=== PATIENT | female | born 1975 | race Caucasian/White ===

== ENCOUNTER → 2021-06-29 14:07 | Outpatient (CLI) | payer OTHER, SELFPAY ==
--- NOTE | 2021-06-29 14:15 | DI.MRI.S_ITS ---
PROCEDURE: MR HIP RT WO CON INDICATIONS: RIGHT HIP PAIN TECHNIQUE: Noncontrast coronal T1 spin echo and STIR through the bony pelvis. Coronal and axial T2 fast spin echo with fat saturation, sagittal T1 spin echo, and oblique axial T2 fast spin echo with fat saturation through the hip. COMPARISON: None. FINDINGS: Image quality: Excellent. Bones and joints: Bone marrow of the pelvic ring and proximal femurs show normal signal throughout. No intraosseous lesions or fractures. No avascular necrosis of the femoral heads. The visualized lower lumbar spine appears normally aligned. Tendons and ligaments: The gluteus medius and minimus tendons appear intact, without associated muscle atrophy. Mild T2 signal elevation adjacent to the femoral insertion sites of the right gluteus medius and minimus tendons. The nearby proximal iliotibial band also appears intact. The iliopsoas tendon appears intact, without adjacent bursal fluid collections or evidence for impingement syndrome. The origin of the hamstring tendon is intact at the ischial tuberosity, as well as the associated sacrotuberous ligament. The straight and reflected heads of the rectus femoris muscle origin appear intact, as well as the conjoint tendon. The ligamentum teres appears intact where visualized. Labrum and cartilage: The acetabular labrum appears intact in the absence of intra-articular contrast. Cartilage surface of the femoral head appears of normal thickness. The alpha angle of the femur is within normal limits at less than 55 degrees. Soft tissues: Visualized muscles demonstrate normal bulk and internal signal. Quadratus femoris muscle demonstrates no internal edema to suggest ischiofemoral impingement. The proximal sciatic neurovascular bundle appears normal adjacent to the hamstring tendons. No free pelvic fluid. Bladder wall thickness is normal. Bowel loops are grossly unremarkable. There are multiple uterine masses, largest of which is within the anterior uterus measuring roughly 80 mm. IMPRESSION: 1. Mild insertional tendinitis of the right gluteus medius and minimus tendons. 2. Multiple uterine masses, likely uterine fibroids. Further assessment with pelvic ultrasound is recommended. Dictated by: Kate Moreland M.D. on 06/29/2021 at 14:54 Approved by: Kate Moreland M.D. on 06/29/2021 at 15:00
== END ==
PROVIDERS: PCP Family Medicine; Referring Provider Family Medicine; Visit Provider Family Medicine
DX: M25.551 Pain in right hip (principal); M76.01 Gluteal tendinitis, right hip; N85.9 Noninflammatory disorder of uterus, unspecified
CPT/HCPCS: 73721

== ENCOUNTER → 2021-08-10 16:44 | Outpatient (CLI) | payer OTHER, SELFPAY ==
--- NOTE | 2021-08-10 16:46 | DI.MG.S_ITS ---
BILATERAL DIGITAL SCREENING MAMMOGRAM 3D/2D WITH CAD: 08/10/2021 Comparison is made to exams dated: 06/15/2019 mammogram, 09/17/2017 mammogram, and 02/16/2016 mammogram - outside. The tissue of both breasts is extremely dense, which lowers the sensitivity of mammography. Current study was also evaluated with a Computer Aided Detection (CAD) system. No significant masses, calcifications, or other findings are seen in either breast. There has been no significant interval change. IMPRESSION: NEGATIVE There is no mammographic evidence of malignancy. A 1 year screening mammogram is recommended. This exam was interpreted at Station ID: [id number]. NOTE: For mammograms, a report in lay terms will be sent to the patient. Approximately 15% of breast malignancies will not be visualized mammographically. In the management of a palpable breast mass, a negative mammogram must not discourage biopsy of a clinically suspicious lesion. Electronically Signed By: Pascual jaffe/[email or web address]:08/10/2021 17:16:40 letter sent: Normal Exam ACR BI-RADS Category 1: Negative [id number]
== END ==
PROVIDERS: PCP Family Medicine; Referring Provider Family Medicine; Visit Provider Family Medicine
DX: Z12.31 Encounter for screening mammogram for malignant neoplasm of breast (principal)
CPT/HCPCS: 77063; 77067

== ENCOUNTER → 2022-02-19 10:23 | Outpatient (CLI) | payer OTHER, SELFPAY ==
[2022-02-19 13:33] LABS: COVID19 -Nasal RAPID Negative (Negative)
== END ==
PROVIDERS: PCP Family Medicine; Visit Provider Obstetrics & Gynecology
DX: Z01.812 Encounter for preprocedural laboratory examination (principal); Z20.822 Contact with and (suspected) exposure to COVID-19
CPT/HCPCS: 87635

== ENCOUNTER 2022-02-20 12:17 | Day surgery (SDC) | payer OTHER, SELFPAY ==
[2022-02-20] VITALS (9 sets, daily range): BP systolic 102–125; BP diastolic 48–78; PULSE 56–83; RESP 14–18; TEMP 36–36.9; O2SAT 97–100; BMI 28.1
--- NOTE | 2022-02-20 | PATH_ITS ---
[facility] Accession Number: [id number] . 01 Material submitted: . uterus - UTERUS / BILATERAL FALLOPIAN TUBES . 02 Diagnosis: Uterus and Bilateral Fallopian Tubes, Laparoscopic Supracervical Hysterectomy with Bilateral Salpingectomies (Fragmented Weight 413 grams): Late secretory / interval phase endometrium; negative for glandular hyperplasia, cytologic atypia, or malignancy. Myometrium with multiple intramural leiomyomas (9-85 mm); negative for atypia or malignancy. Uterine serosa with no significant histomorphologic abnormality. First described fallopian tube, complete cross sections, with benign paratubal cysts (7-15 mm); negative for epithelial atypia or malignancy. Second described fallopian tube with benign paratubal cysts (4-17 mm), complete cross sections; negative for atypia or malignancy. Two intact Essure coils identified at gross examination [facility] 02/23/2022 1314 Local . 02 Electronically signed: . Magdalena Vides MD, Pathologist NPI- [id number] . 01 Gross description: . Received in formalin and labeled with the patient's name and designated uterus and bilat tubes is a markedly disrupted and fragmented uterus including bilateral undesignated fallopian tubes. The uterus fragments aggregate to 413 grams, 23.0 x 18.0 x 5.0 cm. Portions of identifiable serosa are mcleod and smooth with no obvious adhesions identified. The portions of identifiable endometrium are pink-red and slightly granular, up to 0.3 cm thick. The myometrium is mcleod and trabeculated; myometrial thickness cannot be established. There are multiple disrupted, fragmented and disrupted mcleod-white rubbery nodules, ranging in size from 0.9 - 8.5 cm. Two of the fragments contain 1.5 - 2.1 cm long tightly coiled intact Essure coils embedded in a fibrotic lumen. The distance into the cornu cannot be established due to fragmentation. No gross evidence of definite perforation is identified. The cut surface is mcleod-white, whorled and nodular with no gross hemorrhage, calcifications or necrosis identified. The first fallopian tube is 7.0 cm long x 0.5 cm in diameter with a purple-mcleod hyperemic outer surface containing three, 0.7 - 1.5 cm semi-translucent smooth-walled paratubal cyst filled with clear watery fluid, and attached open fimbria. The second fallopian tube is disrupted and approximates to 1.5 cm long x 0.5 cm in diameter, with a purple-mcleod hyperemic outer surface with multiple 0.4 - 1.7 cm semi-translucent smooth-walled paratubal cysts filled with clear watery fluid, and attached open fimbria. No additional lesions are identified. Gun Synchronizer sections are submitted as follows: . A1-A2: Gun Synchronizer endomyometrium. A3-A4: Gun Synchronizer nodules. A5: Gun Synchronizer first fallopian tube with entire fimbria. A6: Gun Synchronizer second fallopian tube with entire fimbria. (CLIFFORD:[id number]) /[facility] 02/22/2022 1744 Local . 02 Pathologist provided ICD-10: D25.0, D25.9, R10.2 . 02 CPT . 916510 Specimen Comment: A courtesy copy of this report has been sent to [phone] Performed at: 01 [facility] Cyt[facility] [address] [place] [address], [place], [place] [id number] MD Pascual Youngblood MD Phone: [phone] Performed at: 02 [facility] [address] [place] [id number] MD Keyla Stevens MD Phone: [phone]
[2022-02-20] MEDS: LACTATED RINGERS 1,000 ML 100 ML IV ×2 (12:52→14:20)
[2022-02-20] MEDS: ACETAMINOPHEN 325 MG TABLET 975 MG PO (12:54)
--- NOTE | 2022-02-20 12:58 | SUR.PREOP ---
Addendum entered by Supriya Brothers R.N. 02/20/22 13:01: Dr. Donaldson informed re test Original Note: Declined test, started period today, essure in place
--- NOTE | 2022-02-20 13:13 | PM.PREOP ---
Pre-operative Note COVID-19 COVID-19 status: Negative Result date/Date tested (Pos, Neg/Pending): 02/19/22 Criteria for continued procedure: Expected advancement of disease process Interval Note History & Physical reviewed/Exam performed by Physician: Yes Changes to H&P: No
[2022-02-20] MEDS: CEFAZOLIN 2 GM/20 ML SYRINGE IV (13:25)
--- NOTE | 2022-02-20 13:56 | SUR.OPER ---
Lithotomy on padded OR bed. [place] Pad Positioner under torso. Head on pillow, arms padded and tucked at sides. Legs secured in padded yellow fins stirrups.
[2022-02-20] MEDS: BUPIVACAINE 0.5% (PF) 30 ML, EPINEPHrine 0.15 MG INJ (14:09)
[2022-02-20] MEDS: ROPIVACAINE 0.2% PF 2 MG/ML 10ML AMP 20 ML INJ (15:11)
--- NOTE | 2022-02-20 15:42 | PM.OP.1 ---
Operative Date/Time/Diagnoses Date of procedure: 02/20/22 Time of procedure: 15:42 Pre-op diagnosis: Menorrhagia and large submucous fibroid Post-op diagnosis: same Procedure & Clinicians Procedure: Laparoscopic supracervical hysterectomy with bilateral salpingectomies Same procedure as scheduled: Yes Indications: Menorrhagia with increased urinary frequency Surgeon: Abimbola Mendez Systematic Theology Professor: Johnson Rouse Click Yes if Unassisted: No Anesthesia Type: General Operative Notes Findings: Enlarged fibroid uterus, normal ovaries and fallopian tubes bilaterally. 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 Closure Type: primary Specimen(s): other (Uterus, not including the cervix and bilateral fallopian tubes) Estimated Blood Loss (mL): 50 Blood products transfused: none Procedure in detail: Patient is brought to the operating room where she underwent general anesthesia and placed in low [facility] stirrups. She was prepped and draped in the usual sterile fashion. A check list was reviewed with the staff in the room prior to beginning of the case. Patient had pulsatile stockings in place and functional. 2 g of Ancef were in prior to beginning of the case.. A Byrd catheter was placed. A single-tooth tenaculum was placed on the anterior lip of the cervix and the cervix dilated to a #6 Hegar dilator. The Zumi uterine manipulator was placed through the cervix into the uterus with the balloon inflated with 3 mL of air. The area of the supra umbilical incision and the 5 mm right and left lower quadrant incisions were injected with Marcaine. An incision was made with scalpel. The incision was carried down to the fascial layer which was grasped with Ana Luisa clamps and incised transversely. O Vicryl suture was placed x2 to hold the fascia. The perineum was entered bluntly. The Bin cannula was placed in the abdomen and the abdomen was insufflated with CO2. There did not appear to be any damage is placement of the trocar. The right and left lower quadrant incisions were made with the scalpel and the trochars placed without damage to internal structures. The PK forceps were used to cauterize the mesosalpinx followed by the round ligaments on both sides. Sequential bites were taken down the broad ligaments. The uterine arteries were cauterized. An incision was made above the level bladder pushing the bladder away from the cervix. The AMIE loop was placed around the uterus and the uterus was amputated above the level of the bladder. Bleeding was controlled with the PK forceps. The PK forceps were used to cauterize in the endocervical canal. A supracervical incision was made and an 11 mm port placed. A 15 mm Endo Catch bag was placed in the abdomen. The uterusand tubes were placed in the bag and brought up through the suprapubic port site. The Casper O was placed. The uterus was hand morselized. The abdomen was reinsufflated and adequate hemostasis was obtained with the PK forceps. 20 cc of ropivacaine were placed over the cervical stump.The trochars were removed and the CO2 allowed escape from the abdomen. The fascia layer of the suprapubic site and the supraumbilical incision were repaired with 0 Polysorb suture. Skin was closed with 4-0 Monocryl suture at the suprapubic site and the other 3 sites. The patient went to recovery room in good condition. Counts of instruments and sponges were correct. Dr. Rouse was present throughout the case to assist with holding the camera, retracting, cauterizing and cutting the structures on the left side of the patient, as well as assisting with morselization of the uterus. Complications: none Post-operative Condition: stable Disposition: same day surgery Plan for aftercare: Home when awake and stable.
[2022-02-20] MEDS: ONDANSETRON 4 MG/2 ML INJ IV (16:16)
[2022-02-20] MEDS: OXYCODONE IR 5 MG TABLET PO (16:41)
== END 2022-02-20 17:47 | disposition home or self-care (01) ==
LOC: OR 12:17 → AC 12:19
PROVIDERS: PCP Family Medicine; Referring Provider Specialist; Visit Provider Specialist
PROC: 0UT94ZL Resection of Uterus, Supracervical, Percutaneous Endoscopic Approach (ICD-10-PCS; CPT 58542; principal; 2022-02-20 13:30)
DX: N92.0 Excessive and frequent menstruation with regular cycle (principal); R35.0 Frequency of micturition; N83.8 Other noninflammatory disorders of ovary, fallopian tube and broad ligament; D25.0 Submucous leiomyoma of uterus; D25.1 Intramural leiomyoma of uterus
CPT/HCPCS: 58542; J0171; J0690; J1100; J1885; J2405; J2704; J2795; J3010

== ENCOUNTER 2025-11-11 17:34 | Emergency (ER) | payer OTHER, SELFPAY ==
[2025-11-11 18:08] VITALS: BP 131/78; PULSE 82; RESP 16; TEMP 37; BMI 27.3
--- NOTE | 2025-11-11 18:19 | DI.RAD.S_ITS ---
PROCEDURE: XR KNEE LT 3V INDICATIONS: Twisted TECHNIQUE: 3 views of the knee were acquired. COMPARISON: None. FINDINGS AND IMPRESSION: No acute displaced fracture is seen. No dislocation. Suspect small joint effusion. Bquf-jz-eyllcmnw knee arthrosis, with tricompartmental osteophytes. There may be small intra-articular bone fragments. If there is high concern for further derangement, consider MRI evaluation. Dictated by: Tereso Arreaga M.D. on 11/11/2025 at 19:17 Approved by: Tereso Arreaga M.D. on 11/11/2025 at 19:18
--- NOTE | 2025-11-11 19:11 | ED_ITS ---
HPI - Extremity Injury (Lower) General Chief Complaint: Extremity Injury, Lower Stated Complaint: Injured L Knee Time Seen by Provider: 11/11/25 19:11 Source: patient Mode of arrival: Family Vehicle History of Present Illness HPI Narrative: 50-year-old female presents with left knee pain that is been ongoing since Saturday after she positioned herself in the opposite direction that the dog was going in and felt a tweak. She has been working all week and noticed she was not able to walk more than 20 ft before her leg gave out on. She did take 4 ibuprofen prior to arrival here. She has also been having right knee pain for which she saw her PCP and recommended physical therapy so she may have been compensating also for the right knee with a left knee pain that is ongoing now. Patient reports that at times the left knee pain does move up and feels like it is pulling on her left hip but denies any chest pain shortness of breath or any history of DVT. Other than what is stated 14 point review of system is negative. Related Data Home Medications ?Medication ?Instructions ?Recorded ?Confirmed loratadine 10 mg tablet (Claritin) 10 mg PO DAILY 12/1502/15/22 Allergies Allergy/AdvReac Type Severity Reaction Status Date / Time cefazolin (From [facility]) Allergy Intermediate Rash Verified 11/11/25 18:08 Sulfa (Sulfonamide AdvReac Mild Rash Verified 11/11/25 18:08 Antibiotics) Review of Systems Review of Systems ROS Unobtainable: All systems reviewed & are unremarkable except as noted in HPI and below Patient History Medical History (Updated 02/28/22 @ 13:41 by Abimbola Mendez MD) Uterine fibroid Seasonal allergies Surgical History (Updated 02/20/22 @ 15:54 by Abimbola Mendez MD) H/O umbilical hernia repair Social History household members: spouse Smoking Status: Never smoker alcohol intake: never Smoking Status: Never smoker Exam Narrative Exam Narrative: GENERAL: [50] year old patient appears stated age. Well-developed patient, in mild distress. HEAD: Atraumatic. Normocephalic. EYES: Pupils equal round and reactive. Extraocular motions intact. No scleral icterus. No injection or drainage. ENT: Nose without bleeding, purulent drainage. Throat without erythema, tonsillar hypertrophy or exudate. Airway patent. NECK: Trachea midline. Non tender EXTREMITIES: L knee varus, valgus, ant/posterior/allen/sheba intact +2 DP +2PT cap refill <2secs BACK: Nontender without deformity or crepitance. No flank tenderness. NEURO: AOx3. SKIN: No rash or erythema of visible areas Initial Vital Signs Initial Vital Signs: Vital Signs Temperature 98.6 F 11/11/25 18:08 Pulse Rate 82 11/11/25 18:08 Respiratory Rate 16 11/11/25 18:08 Blood Pressure 131/78 11/11/25 18:08 Oxygen Delivery Method Room Air 11/11/25 18:08 Course Orders Ordered: ED Orders 11/11/25 18:19 XR knee LT 3V Stat Vital Signs Vital signs: Vital Signs - 8 hr 11/11/25 18:08 11/11/25 21:24 Temperature 98.6 F Pulse Rate 82 83 Respiratory Rate 16 20 Blood Pressure 131/78 124/81 Pulse Oximetry 96 Oxygen Delivery Method Room Air Room Air MDM - Extremity Injury (Lower) Imaging Data Extremity x-ray #1: Radiologist's Impression: [address] [address] XRay Report Signed Patient: Shazia Martinez MR#: [id number] : 1975 Acct:[id number] Age/Sex: 50 / F Date of Service: 11/11/25 Loc: ED Accession Number: [id number] Procedure: XR knee LT 3V Ordering Provider: Leonardo Erickson D.O. PROCEDURE: XR KNEE LT 3V INDICATIONS: Twisted TECHNIQUE: 3 views of the knee were acquired. COMPARISON: None. FINDINGS AND IMPRESSION: No acute displaced fracture is seen. No dislocation. Suspect small joint effusion. Hsuu-st-svhehuck knee arthrosis, with tricompartmental osteophytes. There may be small intra-articular bone fragments. If there is high concern for further derangement, consider MRI evaluation. Dictated by: Tereso Arreaga M.D. on 11/11/2025 at 19:17 Approved by: Tereso Arreaga M.D. on 11/11/2025 at 19:18 [facility] Narrative Medical decision making narrative: All lab work vital signs nurse triage note medication list previous ER visits in all imaging study reviewed. Btbk-lq-zhwfduuy knee arthrosis with tricompartmental osteophytes. May be small intra-articular bone fragments. Suspect small joint effusion. Patient placed in knee immobilizer and crutches and to follow up with [facility] referral. Discharge Plan Departure Prescriptions: No Action loratadine [Claritin] 10 mg tablet 10 mg PO DAILY Referrals: ProviderShamar [Primary Care Provider, Family Practice]
[2025-11-11 21:24] VITALS: BP 124/81; PULSE 83; RESP 20; O2SAT 96
== END 2025-11-11 21:50 | disposition home or self-care (01) ==
PROVIDERS: Emergency Provider Family Medicine
DX: M17.12 Unilateral primary osteoarthritis, left knee (principal); M25.762 Osteophyte, left knee; M25.561 Pain in right knee; X50.1XXA Overexertion from prolonged static or awkward postures, initial encounter
CPT/HCPCS: 73562; 99283